=== PATIENT | male | born 1990 | race Caucasian/White ===

== ENCOUNTER 2018-11-21 20:13 | Emergency (ER) | payer OTHER ==
--- NOTE | 2018-11-21 20:28 | EDPHY ---
HPI/HX/ROS/PE/MDM Narrative: CHIEF COMPLAINT: Snowboarding accident, hip pain HPI: This patient is a generally healthy 27 year old male. He arrives with his family complaining of right hip pain secondary to a fall while snowboarding earlier today around 13:45. He landed on his left side in the fall, striking his hip and shoulder. Despite landing on the left, he complains of right-sided pain "deep in my hip socket" which radiates to his groin and up towards his low back. He was able [place] the [place] immediately following the event , but his pain has increased since then. He is unable to bear weight on the right side at this time. He denies any other recent falls or trauma. He did not strike his head or lose consciousness. REVIEW OF SYSTEMS: A comprehensive 10 system review of systems is otherwise negative aside from elements mentioned in the history of present illness and medical decision making. PMH: Denies SOCIAL HISTORY: Family at bedside. Single. Employed. PHYSICAL EXAM: General:Patient is alert, in no acute distress. ENT:Eyes are normal to inspection. ENT inspection normal. Neck: Normal inspection. Full range of motion. Respiratory:No respiratory distress. Breath sounds normal bilaterally. Cardiovascular: Regular rate and rhythm. Strong peripheral pulses. Normal cap refill. Abdomen:The abdomen is nontender to palpation. There are no peritoneal signs. There are normal bowel sounds. Back: Normal to inspection. No tenderness to palpation. Skin: Normal color. No rash. Warm and dry. Extremities: Normal appearance. Full range of motion. Neuro: Oriented x3. Normal motor function. Normal sensory function. ED Course: 27 y/o male presents with right hip pain following a fall while snowboarding earlier today. He has considerable pain with attempted straight leg raise on exam. Plan for x-ray of the right hip. X-ray negative for fracture. 21:00 Reassessed patient. Discussed imaging results. He continues to complain of discomfort and is unable to walk. Plan for CT of the pelvis for further evaluation. 21:[address] Trinidad, radiologist. CT negative for acute processes. Reassessed. Plan to discharge home in good condition with referral to advertising specialist. Follow up and return precautions discussed. He is comfortable with this plan. MDM: This is a young healthy male who presents with right-sided hip pain after a fall while snowboarding earlier today, landing on his left hip. Patient's exam is very reassuring and his initial x-rays negative. However given the fact that he continues to complain of pain with walking, we expanded workup to include CT scan of the abdomen pelvis. This again is negative. There is no sign of occult pubic ramus fracture which was the primary concern. The patient' s abdomen is completely benign. The etiology of his pain is unclear. As the pain is primarily on the side that did not receive the primary impact, I suspect this is a possible ligamentous or muscle strain issue. I do not think he requires admission or surgery at this time. We discussed strict return precautions and need for orthopedic follow-up. The patient did not asking for pain medication at a time. His neurologic exam is normal. His presentation is made more reassuring by the fact that he was able to continue snowboarding after the initial trauma. - Data Points Imaging Results: Imaging Impressions Hip X-Ray 11/21/18 20:24 Impression: 1. Negative for fracture. 2. Stable sacral deformity Pelvis CT 11/21/18 21:02 Impression: Negative for fracture. Results called and discussed with Yanick Mantilla MD on 11/21/2018 at 21:35. Imaging: I viewed and interpreted images myself General Time Seen by Provider: 11/21/18 20:18 Initial Vital Signs: Initial Vital Signs Temperature (C) 37.1 C 11/21/18 20:16 Heart Rate 87 11/21/18 20:16 Respiratory Rate 18 11/21/18 20:16 Blood Pressure 124/77 H 11/21/18 20:16 O2 Sat (%) 95 11/21/18 20:16 O2 Delivery Mode Room Air Allergies/Adverse Reactions: No Known Allergies Allergy (Unverified 12/03/11 05:01) Home Medications: Medication Instructions Recorded NK [No Known Home Meds] 11/21/18 Departure - Departure Disposition: Home, Routine, Self-Care Clinical Impression: Contusion of right hip Condition: Good Instructions: Hip Contusion (ED) Additional Instructions: Rest, ice. Take ibuprofen as directed on the packaging as needed for pain. Follow up with an orthopedic surgeon within one week if pain persists. Return to the emergency department for worsening pain, swelling, numbness, weakness or other concerns. Referrals: Ale Hendrix MD [Medical Doctor] - As per Instructions Baltazar Leone MD [Medical Doctor] - As per Instructions Report Scribed for: Yanick Mantilla Report Scribed by: Bhumika Garg Date of Report: 11/21/18 Time of Report: 20:30 Physician Review and Approval Statement: Portions of this note were transcribed by an ED scribe. I personally performed the history, physical exam, and medical decision making; and confirm the accuracy of the information in the transcribed note.
[2018-11-21 21:53] VITALS: BP 120/59
== END 2018-11-21 21:51 | disposition home or self-care (01) ==
DX: S70.01XA Contusion of right hip, initial encounter (principal); V00.311A Fall from snowboard, initial encounter; Y93.23 Activity, snow (alpine) (downhill) skiing, snowboarding, sledding, tobogganing and snow tubing; Y92.828 Other wilderness area as the place of occurrence of the external cause

== ENCOUNTER 2018-12-07 17:29 | Emergency (ER) | payer MEDICAID, OTHER ==
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
[2018-12-07 18:46] VITALS: BP 118/74
== END 2018-12-07 18:54 | disposition home or self-care (01) ==
PROC: 09QKXZZ Repair Nasal Mucosa and Soft Tissue, External Approach (ICD-10-PCS; principal; 2018-12-07)
DX: S01.21XA Laceration without foreign body of nose, initial encounter (principal); V18.0XXA Pedal cycle driver injured in noncollision transport accident in nontraffic accident, initial encounter; Y93.55 Activity, bike riding; Y92.480 Sidewalk as the place of occurrence of the external cause